=== PATIENT | female | born 1990 | race Caucasian/White ===

== ENCOUNTER 2016-12-16 16:54 | Outpatient (CLI) ==
[2013-03-23 17:25] VITALS: TEMP 97.8; BMI 26.9
[2016-12-16 17:07] LABS: BASOPHILS % (AUTO) 0.5 % (0.0-3.0); EOSINOPHILS # (AUTO) 0.3 K/ul (0.0-0.7); EOSINOPHILS % (AUTO) 3.5 % (0.0-7.0); HEMOGLOBIN 14.6 g/dl (12.0-16.0); IMMATURE GRANULOCYTE % (AUTO) 0.1 % (0.0-5.0); LYMPHOCYTES # (AUTO) 3.2 K/uL (0.60-3.4); LYMPHOCYTES % (AUTO) 43.1 (10.0-50.0); MEAN CORPUSCULAR HEMOGLOBIN 31.3 pg (27.0-31.0); MEAN CORPUSCULAR HGB CONC 35.6 (31.8-35.4); MONOCYTES # (AUTO) 0.4 K/uL (0.4-2.0); MONOCYTES % (AUTO) 5.2 (0-10); NEUTROPHILS # (AUTO) 3.6 K/ul (2.0-6.9); NEUTROPHILS % (AUTO) 47.6; PLATELET COUNT 283 10^3/uL (140-440); RED BLOOD COUNT 4.66 10^6/ul (4.20-5.40); WHITE BLOOD COUNT 7.47 K/ul (4.6-10.2)
[2016-12-16 17:09] LABS: BILIRUBIN,URINE 1+ (NEGATIVE); KETONES,URINE Trace (NEGATIVE); LEUKOCYTE ESTERASE ,URINE 1+ (NEGATIVE); NITRITE,URINE Negative (NEGATIVE); PROTEIN,URINE Trace (NEGATIVE); URINE, BLOOD Trace-lysed (NEGATIVE)
[2016-12-16 17:24] LABS: ADD URINE MICROSCOPIC YES; BACTERIA,URINE 1+ (NOT PRESENT); SERUM PREGNANCY INTERNAL QC INTERNAL QC VALID
[2016-12-16 17:25] LABS: ALBUMIN 4.1 g/dL (3.4-5.0); ALBUMIN/GLOBULIN RATIO 1.28; ANION GAP 14.6; BILIRUBIN,TOTAL 0.59 mg/dL (0.00-1.20); BUN/CREATININE RATIO 13.75; CALCIUM 9.2 mg/dL (8.2-10.2); CREATININE 0.8 mg/dL (0.60-1.30); POTASSIUM 3.6 mmol/L (3.5-5.10); TOTAL PROTEIN 7.3 g/dL (6.4-8.2)
== END 2016-12-16 16:55 | disposition home or self-care (01) ==
LOC: LAB 16:54
PROVIDERS: ATTEND Nurse Practitioner Family
DX: R10.12 Left upper quadrant pain (principal); R10.812 Left upper quadrant abdominal tenderness
CPT/HCPCS: 36415; 80053; 81001; 82150; 83690; 84703; 85025; 87086

== ENCOUNTER 2016-12-20 07:54 | Outpatient (CLI) ==
[2013-03-23 17:25] VITALS: TEMP 97.8; BMI 26.9
--- NOTE | 2016-12-20 08:44 | CT ---
EXAM: CT of the abdomen and pelvis with contrast History: Left upper quadrant abdominal pain. Comparison: Abdominal ultrasound 01/08/2014, CT abdomen pelvis 09/04/2013 Technique: Multiplanar CT images through the abdomen pelvis were obtained following administration of IV contrast Findings: Lung bases are free of consolidation. No acute osseous abnormalities. Cholecystectomy clips. No focal liver or splenic lesions. No renal masses. Pancreas is unremarkab le. Adrenal glands are unremarkable. No bowel obstruction. No free air. No ascites. Visualized appendix is not dilated or inflamed. Scattered colonic stool. Intrauterine device is seen in place . No bladder wall thickening. No perirectal inflammation. Impression: No acute intra-abdominal or pelvic process.
== END 2016-12-20 07:55 | disposition home or self-care (01) ==
LOC: RAD 07:54
PROVIDERS: ATTEND Nurse Practitioner Family
DX: R10.812 Left upper quadrant abdominal tenderness (principal); R10.12 Left upper quadrant pain

== ENCOUNTER 2018-06-27 10:24 | Outpatient (CLI) ==
[2013-03-23 17:25] VITALS: TEMP 97.8; BMI 26.9
== END 2018-06-27 10:25 | disposition home or self-care (01) ==
LOC: RHC-LAB 10:24
PROVIDERS: ATTEND Nurse Practitioner Family
DX: J02.9 Acute pharyngitis, unspecified (principal)
CPT/HCPCS: 87651

== ENCOUNTER 2019-01-29 09:36 | Outpatient (CLI) ==
[2013-03-23 17:25] VITALS: TEMP 97.8; BMI 26.9
--- NOTE | 2019-01-29 10:01 | DI ---
EXAM: KUB HISTORY: Abdominal pain. FINDINGS: Bowel gas pattern is normal. There is no excessive fecal retention. The rectum is clear. No organomegaly or suspicious calcification. Intrauterine device superimposed over the mid anatomi c pelvis. Surgical clips over the right upper quadrant. Bones reveal transitional vertebral body an atomy at the lumbosacral junction. IMPRESSION: 1. Normal bowel gas pattern.
== END 2019-01-29 09:37 | disposition home or self-care (01) ==
LOC: RAD 09:36
PROVIDERS: ATTEND Nurse Practitioner Family
DX: R10.9 Unspecified abdominal pain (principal)
CPT/HCPCS: 36415; 80053; 81001; 85025